=== PATIENT | male | born 1980 | race Two or more races ===

== ENCOUNTER → 2021-11-05 | Emergency (ER) | payer OTHER ==
[~2021-11-05] VITALS: Ht 172.7 cm; Wt 113.4 kg
[~2021-11-05] MED LIST: BENADRYL50 MG; CEPHULAC10 G/15 ML PO; CLONAZEPAM1 MG PO; CLONAZEPAM2 MG; ESTAZOLAM2 MG; PEPCID40 MG PO; SEROQUEL XR150 MG; SEROQUEL50 MG PO; ZOFRAN4 MG PO; ZYPREXA20 MG PO
== END | disposition left against medical advice (07) ==
LOC: ER 20:32
DX: R10.84 Generalized abdominal pain (principal)